=== PATIENT | male | born 1965 | race Caucasian/White ===

== ENCOUNTER 2021-06-08 07:36 | Emergency (ER) | payer OTHER ==
[2021-06-08 08:37] LABS: BASOPHIL 0.2 % (0-2); EOSINOPHIL 0 % (0-5); HCT 59.9 % (42.0-52.0); HGB 18.9 g/dl (13.2-18.0); MCH 33.5 pg (25.0-31.0); MCHC 31.6 g/dL (32.0-36.0); MCV 106.2 fL (78.0-100.0); MONOCYTE 7.9 % (0-12); MPV 9.9 fL (6.0-9.5); NEUTROPHIL 70.3 % (41-80); NRBC 0; PLT 181 K/uL (150-400); RBC 5.64 M/uL (4.70-6.00); RDW 14.2 % (11.5-14.0); WBC 8.1 K/uL (4.0-10.5)
[2021-06-08 09:01] LABS: ALBUMIN 3.5 g/dL (3.4-5.0); BILIRUBIN - TOTAL 0.4 mg/dL (0.2-1.0); CREATININE 0.79 mg/dL (0.67-1.17); POTASSIUM 4.9 mmol/L (3.5-5.1); TOTAL PROTEIN 7.5 g/dL (6.4-8.2)
[2021-06-08 09:22] LABS: CORONAVIRUS 2019 SARS-COV-2 NEGATIVE (NEGATIVE); INFLUENZA A NAA NEGATIVE (NEGATIVE)
[2021-06-08 09:27] LABS: LACTIC ACID 0.9 mmol/L (0.4-1.9)
[2021-06-08] MEDS ORDERED: PREDNISONE 20MG20 MG PO (14:08)
[2021-06-08] MEDS ORDERED: FUROSEMIDE 20MG20 MG PO (14:08)
[2021-06-08] MEDS ORDERED: VIBRAMYCIN100 MG PO (14:08)
== END 2021-06-08 14:34 | disposition home or self-care (01) ==
LOC: FER 07:36
PROVIDERS: Internal Medicine
DX: J44.0 Chronic obstructive pulmonary disease with (acute) lower respiratory infection (principal); J18.9 Pneumonia, unspecified organism; J44.1 Chronic obstructive pulmonary disease with (acute) exacerbation; J96.01 Acute respiratory failure with hypoxia; J96.02 Acute respiratory failure with hypercapnia; R79.0 Abnormal level of blood mineral; F17.210 Nicotine dependence, cigarettes, uncomplicated; Z20.822 Contact with and (suspected) exposure to COVID-19; Z82.49 Family history of ischemic heart disease and other diseases of the circulatory system
CPT/HCPCS: 36415; 36600; 71045; 80053; 82803; 83605; 83880; 84145; 84484; 85025; 87040; 93005; 94640; 94664; 94762; J0456; J0696; J1940; J2930; J7050; J7120; U0002

== ENCOUNTER 2021-10-19 06:50 | Emergency (ER) | payer OTHER ==
[~2021-10-19 06:50] MED LIST: FUROSEMIDE 20MG20 MG PO; PREDNISONE 20MG20 MG PO; VIBRAMYCIN100 MG PO
[2021-10-19 07:58] LABS: BASOPHIL 0.5 % (0-2); EOSINOPHIL 1.6 % (0-5); HCT 55.8 % (42.0-52.0); HGB 17.9 g/dl (13.2-18.0); LYMPHOCYTE 33.1 % (15-48); MCH 34.3 pg (25.0-31.0); MCHC 32.1 g/dL (32.0-36.0); MCV 106.9 fL (78.0-100.0); MONOCYTE 9.8 % (0-12); MPV 10.2 fL (6.0-9.5); NEUTROPHIL 54.6 % (41-80); NRBC 0; PLT 206 K/uL (150-400); RBC 5.22 M/uL (4.70-6.00); RDW 14.5 % (11.5-14.0); WBC 5.5 K/uL (4.0-10.5)
[2021-10-19 08:15] LABS: INFLUENZA A NAA NEGATIVE (NEGATIVE)
[2021-10-19 08:19] LABS: CORONAVIRUS 2019 SARS-COV-2 POSITIVE (NEGATIVE)
[2021-10-19 08:42] LABS: ALBUMIN 3.6 g/dL (3.4-5.0); BILIRUBIN - TOTAL 0.5 mg/dL (0.2-1.0); BUN/CREAT RATIO (CALC) 11.4 RATIO; CREATININE 0.88 mg/dL (0.67-1.17); GLOBULIN (CALCULATION) 3.8 g/dL; POTASSIUM 4.5 mmol/L (3.5-5.1); TOTAL PROTEIN 7.4 g/dL (6.4-8.2)
[2021-10-19] MEDS ORDERED: DECADRON6 MG PO (10:37)
== END 2021-10-19 12:49 | disposition home or self-care (01) ==
LOC: FER 06:50
PROVIDERS: Emergency Medicine
DX: U07.1 COVID-19 (principal); J44.1 Chronic obstructive pulmonary disease with (acute) exacerbation; R59.0 Localized enlarged lymph nodes; F17.200 Nicotine dependence, unspecified, uncomplicated; Z23 Encounter for immunization; Z99.81 Dependence on supplemental oxygen; Z79.51 Long term (current) use of inhaled steroids
CPT/HCPCS: 36415; 36600; 71045; 71275; 80053; 82803; 83880; 84484; 85025; 93005; 94640; 94664; J1100; M0245; Q0245; Q9967; U0002

== ENCOUNTER 2022-03-23 07:22 | Day surgery (SDCO) | payer OTHER ==
[~2022-03-23] VITALS: Ht 177.8 cm; Wt 89.9 kg
[~2022-03-23 07:22] MED LIST changes: +DECADRON6 MG PO
[2022-03-23 08:26] LABS: BASOPHIL 0.4 % (0-2); EOSINOPHIL 0.1 % (0-5); HCT 54.5 % (42.0-52.0); HGB 17.6 g/dl (13.2-18.0); LYMPHOCYTE 5.6 % (15-48); MCH 33.4 pg (25.0-31.0); MCHC 32.3 g/dL (32.0-36.0); MCV 103.4 fL (78.0-100.0); MONOCYTE 5.1 % (0-12); MPV 10.3 fL (6.0-9.5); NEUTROPHIL 88.2 % (41-80); NRBC 0; PLT 205 K/uL (150-400); RBC 5.27 M/uL (4.70-6.00); WBC 15.8 K/uL (4.0-10.5)
[2022-03-23 08:51] LABS: ALBUMIN 3.3 g/dL (3.4-5.0); BILIRUBIN - TOTAL 0.7 mg/dL (0.2-1.0); BUN/CREAT RATIO (CALC) 16.3 RATIO; CREATININE 0.92 mg/dL (0.67-1.17); GLOBULIN (CALCULATION) 4.4 g/dL; POTASSIUM 3.8 mmol/L (3.5-5.1); TOTAL PROTEIN 7.7 g/dL (6.4-8.2)
[2022-03-23 09:01] LABS: LACTIC ACID 0.8 mmol/L (0.4-1.9)
[2022-03-23 09:21] LABS: BILIRUBIN 2+ mg/dL (NEGATIVE); BLOOD NEGATIVE Ery/uL (NEGATIVE); CLARITY CLEAR (CLEAR); COLOR YELLOW (YELLOW); GLUCOSE (U) NORMAL (NORMAL); LEUKOCYTES NEGATIVE Leu/uL (NEGATIVE); NITRITE NEGATIVE (NEGATIVE); PROTEIN 1+ mg/dL (NEGATIVE); UROBILINOGEN 0.2 mg/dL (0.2-1.0)
[2022-03-23 09:34] LABS: BACTERIA TRACE; MUCOUS MODERATE; SQUAMOUS EPITHELIAL CELLS 20-50
[2022-03-23 09:55] LABS: CORONAVIRUS 2019 SARS-COV-2 NEGATIVE (NEGATIVE); INFLUENZA A NAA NEGATIVE (NEGATIVE)
[2022-03-23] MEDS ORDERED: BREO ELLIPTA 11 EACH INH (11:34)
[2022-03-23] MEDS ORDERED: ATROVENT HFA12.9 GM INH (11:34)
[2022-03-24 06:03] LABS: BASOPHIL 0.1 % (0-2); EOSINOPHIL 0 % (0-5); HCT 53.6 % (42.0-52.0); HGB 17.5 g/dl (13.2-18.0); LYMPHOCYTE 5.3 % (15-48); MCH 33.5 pg (25.0-31.0); MCHC 32.6 g/dL (32.0-36.0); MCV 102.5 fL (78.0-100.0); MONOCYTE 1.6 % (0-12); MPV 10.4 fL (6.0-9.5); NRBC 0; PLT 226 K/uL (150-400); RBC 5.23 M/uL (4.70-6.00); RDW 13.7 % (11.5-14.0); WBC 14.7 K/uL (4.0-10.5)
[2022-03-24 06:23] LABS: NEUTROPHIL 91.8 % (41-80)
[2022-03-24 06:31] LABS: BUN/CREAT RATIO (CALC) 26.6 RATIO; CREATININE 0.79 mg/dL (0.67-1.17); POTASSIUM 4.4 mmol/L (3.5-5.1)
--- NOTE | 2022-03-24 14:34 | NUR ---
SENT A MESSAGE TO [facility] FAXED INFORMATION TO HER ABOUT NEEDING HOME O2; SENT FAX ORDER OF WALKING SAT [facility]
[2022-03-25 06:45] LABS: BASOPHIL 0.2 % (0-2); EOSINOPHIL 0.2 % (0-5); HCT 52.1 % (42.0-52.0); MCH 33.5 pg (25.0-31.0); MCHC 32.6 g/dL (32.0-36.0); MCV 102.6 fL (78.0-100.0); MONOCYTE 2.4 % (0-12); MPV 10.2 fL (6.0-9.5); NRBC 0; PLT 234 K/uL (150-400); RBC 5.08 M/uL (4.70-6.00); RDW 14.2 % (11.5-14.0); WBC 21.7 K/uL (4.0-10.5)
[2022-03-25 06:50] LABS: NEUTROPHIL 92.2 % (41-80)
[2022-03-25 07:23] LABS: BUN/CREAT RATIO (CALC) 36.6 RATIO; CREATININE 0.82 mg/dL (0.67-1.17); POTASSIUM 4.7 mmol/L (3.5-5.1)
[2022-03-25] MEDS ORDERED: FLORANEX TABLE1 EACH PO (07:43)
[2022-03-25] MEDS ORDERED: CEFDINIR300 MG PO (07:44)
[2022-03-25] MEDS ORDERED: NEBULIZER UNIT NEB (07:44)
[2022-03-25] MEDS ORDERED: AZITHROMYCIN250 MG PO (07:45)
[2022-03-25] MEDS ORDERED: PREDNISONE 20MG20 MG PO (07:49)
== END 2022-03-25 11:41 | disposition home or self-care (01) ==
LOC: FER 07:22 → FMS 10:08
PROVIDERS: Emergency Medicine; Nurse Practitioner; ADMIT Internal Medicine
DX: A41.9 Sepsis, unspecified organism (principal); J18.9 Pneumonia, unspecified organism; J44.1 Chronic obstructive pulmonary disease with (acute) exacerbation; J96.92 Respiratory failure, unspecified with hypercapnia; J96.91 Respiratory failure, unspecified with hypoxia; F17.210 Nicotine dependence, cigarettes, uncomplicated; Z99.81 Dependence on supplemental oxygen; Z20.822 Contact with and (suspected) exposure to COVID-19
CPT/HCPCS: 36415; 36600; 71045; 71046; 80048; 80053; 81001; 82803; 83605; 84145; 85025; 87040; 94667; 94668; 94760; G0378; J0456; J0696; J1650; J2930; J7050; U0002